=== PATIENT | male | born 1975 | race Caucasian/White ===

== ENCOUNTER 2018-10-28 16:57 | Emergency (ER) | payer BC ==
--- NOTE | 2018-10-28 18:19 | ER Document Report ---
ED Medical Screen (RME) - General Chief Complaint: Leg Swelling Stated Complaint: LEG SWELLING Time Seen by Provider: 10/28/18 18:08 Primary Care Provider: ANT DENIS [Primary Care Provider] - Follow up as needed Notes: Patient is a 43-year-old male presents to the emergency department with redness and swelling noted to his left lower extremity. Patient states a week ago he attempted to jump off of a deck. States he landed on his left knee. Sustained an abrasion. States the redness, swelling, pain has increased which is why he presents to the emergency room. States he did go to work urgent care who told him to come to the emergency room as they were concerned for a blood clot. Patient's pain is not in his calf, is more in his left knee and salazar. Generalized swelling noted entire left lower extremity knee down. Abrasion noted over left knee with surrounding erythema. I have greeted and performed a rapid initial assessment of this patient. A comprehensive ED assessment and evaluation of the patient, analysis of test results and completion of the medical decision making process will be conducted by additional ED providers. This medical record was dictated with voice recognizing software. There may be grammatical, syntax errors that are unintended. TRAVEL OUTSIDE OF THE [place] IN LAST 30 DAYS: No - Related Data Allergies/Adverse Reactions: Penicillins Allergy (Verified 10/28/18 17:10) Past Medical History - Social History Chew tobacco use (# tins/day): No Frequency of alcohol use: None Drug Abuse: None Renal/ Medical History: Denies: Hx Peritoneal Dialysis Physical Exam - Vital signs Vitals: Temp Pulse Resp BP Pulse Ox 98.2 F 106 H 18 160/108 H 97 10/28/18 17:17 10/28/18 17:17 10/28/18 17:17 10/28/18 17:17 10/28/18 17:17 Course - Vital Signs Vital signs: Temp Pulse Resp BP Pulse Ox 98.2 F 106 H 18 160/108 H 97 10/28/18 17:17 10/28/18 17:17 10/28/18 17:17 10/28/18 17:17 10/28/18 17:17 Doctor's Discharge - Discharge Referrals: ANT DENIS [Primary Care Provider] - Follow up as needed
[2018-10-28 18:59] LABS: ABSOLUTE BASOPHILS # (AUTO) 0.1 10^3/uL (0.0-0.2); ABSOLUTE EOSINOPHILS # (AUTO) 0.1 10^3/uL (0.0-0.6); ABSOLUTE LYMPHOCYTES (AUTO) 1.6 10^3/uL (0.5-4.7); ABSOLUTE MONOCYTES (AUTO) 1.1 10^3/uL (0.1-1.4); ABSOLUTE NEUT (AUTO) 4.3 10^3/uL (1.7-8.2); BASOPHILS % (AUTO) 0.8 % (0-2); EOSINOPHILS % (AUTO) 1.3 % (0-6); HEMATOCRIT 41.9 % (37.9-51.0); HEMOGLOBIN 14.5 g/dL (13.5-17.0); LYMPHOCYTES % (AUTO) 22.1 % (13-45); MEAN CORPUSCULAR HEMOGLOBIN 28.8 pg (27.0-33.4); MEAN CORPUSCULAR HGB CONC 34.7 g/dL (32.0-36.0); MEAN CORPUSCULAR VOLUME 83 fl (80-97); MONOCYTES % (AUTO) 15.6 % (3-13); PLATELET COUNT 272 10^3/uL (150-450); RED BLOOD COUNT 5.03 10^6/uL (4.35-5.55); RED CELL DISTRIBUTION WIDTH 13.5 % (11.5-14.0); SEGMENTED NEUTROPHILS % (AUTO) 60.2 % (42-78); TOTAL CELLS COUNTED % (AUTO) 100 %; WHITE BLOOD COUNT 7.2 10^3/uL (4.0-10.5)
--- NOTE | 2018-10-28 19:09 | RADIOLOGY REPORT (SQ) ---
EXAM DESCRIPTION: TIBIA FIBULA LEFT COMPLETED DATE/TIME: 10/28/2018 6:56 pm REASON FOR STUDY: pain/trauma COMPARISON: None. NUMBER OF VIEWS: Two views. TECHNIQUE: Two radiographic images acquired of the left tibia and fibula to include the knee and ank le in at least one projection. LIMITATIONS: None. FINDINGS: MINERALIZATION: Normal. BONES: No acute fracture or dislocation. No worrisome bone lesions. SOFT TISSUES: No obvious swelling or foreign body. OTHER: No other significant finding. IMPRESSION: NEGATIVE STUDY OF THE LEFT TIBIA AND FIBULA. NO RADIOGRAPHIC EVIDENCE OF ACUTE INJURY. TECHNICAL DOCUMENTATION: JOB ID: [id number] [employer]- All Rights Reserved Reading location - IP/workstation name: [email or web address]
--- NOTE | 2018-10-28 19:10 | RADIOLOGY REPORT (SQ) ---
EXAM DESCRIPTION: KNEE LEFT 4 VIEW COMPLETED DATE/TIME: 10/28/2018 6:56 pm REASON FOR STUDY: pain/trauma COMPARISON: None. NUMBER OF VIEWS: Four views. TECHNIQUE: AP, lateral, and both oblique radiographic images acquired of the left knee. LIMITATIONS: None. FINDINGS: MINERALIZATION: Normal. BONES: No acute fracture or dislocation. No worrisome bone lesions. JOINT: No effusion. SOFT TISSUES: No soft tissue swelling. No radio-opaque foreign body. OTHER: No other significant finding. IMPRESSION: NEGATIVE STUDY OF THE LEFT KNEE. NO RADIOGRAPHIC EVIDENCE OF ACUTE INJURY. TECHNICAL DOCUMENTATION: JOB ID: [id number] [employer]- All Rights Reserved Reading location - IP/workstation name: [email or web address]
[2018-10-28 19:21] LABS: ALANINE AMINOTRANSFERASE 29 U/L (21-72); ALBUMIN 4.1 g/dL (3.5-5.0); ALKALINE PHOSPHATASE 100 U/L (38-126); ANION GAP 7 (5-19); ASPARTATE AMINO TRANSFERASE 31 U/L (17-59); BILIRUBIN,DIRECT 0.2 mg/dL (0.0-0.4); BILIRUBIN,TOTAL 0.8 mg/dL (0.2-1.3); BLOOD UREA NITROGEN 14 mg/dL (7-20); CALCIUM 8.6 mg/dL (8.4-10.2); CARBON DIOXIDE 31 mmol/L (22-30); CHLORIDE 103 mmol/L (98-107); GLUCOSE 101 mg/dL (75-110); POTASSIUM 4.1 mmol/L (3.6-5.0); SODIUM 141.1 mmol/L (137-145); TOTAL PROTEIN 7.1 g/dL (6.3-8.2)
[2018-10-28] MEDS ORDERED: OXYCODONE-ACETAMINOPHEN 5-325 MG TABLET PO ONE (20:46)
[2018-10-28] MEDS ORDERED: CEPHALEXIN 500 MG CAPSULE PO ONE (20:47)
[2018-10-28] MEDS ORDERED: ONDANSETRON 4 MG TAB.RAPDIS PO ONE (20:47)
--- NOTE | 2018-10-28 21:00 | ER Document Report ---
ED Extremity Problem, Lower - General Chief Complaint: Leg Swelling Stated Complaint: LEG SWELLING Time Seen by Provider: 10/28/18 18:08 Notes: Patient is a 43-year-old male that comes to the emergency department chief complaint of swelling, pain, bruising, and some developing redness in the left lower extremity. Redness is over the knee. Bruising is mainly over the medial aspect beside the knee and below this. Patient states that he 1 week ago he jumped off a deck, caught his flip-flop, landed on his left knee, had an abrasion at that time. He states instead of resting and elevating it he went right back to work, this has been progressively swelling. Denies fever/chills, nausea/vomiting. He is not a diabetic. Tetanus is up-to-date. He is not on a blood thinner. Only past medical history is hypertension, he states he is out of his lisinopril 10 mg daily and he is hoping for a refill. TRAVEL OUTSIDE OF THE [place] IN LAST 30 DAYS: No - Related Data Allergies/Adverse Reactions: Penicillins Allergy (Verified 10/28/18 17:10) Past Medical History - General Information source: Patient - Social History Smoking Status: Never Smoker Chew tobacco use (# tins/day): No Frequency of alcohol use: None Drug Abuse: None Lives with: Family Family History: Reviewed & Not Pertinent Patient has suicidal ideation: No Patient has homicidal ideation: No - Past Medical History Cardiac Medical History: Reports: Hx Hypertension Renal/ Medical History: Denies: Hx Peritoneal Dialysis - Immunizations Immunizations up to date: Yes Hx Diphtheria, Pertussis, Tetanus Vaccination: Yes Review of Systems - Review of Systems Constitutional: No symptoms reported EENT: No symptoms reported Cardiovascular: No symptoms reported Respiratory: No symptoms reported Gastrointestinal: No symptoms reported Genitourinary: No symptoms reported Male Genitourinary: No symptoms reported Musculoskeletal: See HPI Skin: See HPI Hematologic/Lymphatic: No symptoms reported Neurological/Psychological: No symptoms reported Physical Exam - Vital signs Vitals: Temp Pulse Resp BP Pulse Ox 98.2 F 106 H 18 160/108 H 97 10/28/18 17:17 10/28/18 17:17 10/28/18 17:17 10/28/18 17:17 10/28/18 17:17 - Notes Notes: GENERAL: Alert, interacts well. No acute distress. HEAD: Normocephalic, atraumatic. EYES: Pupils equal, round, and reactive to light. Extraocular movements intact. ENT: Oral mucosa moist, tongue midline. Oropharynx unremarkable. Airway patent. NECK: Full range of motion. Supple. Trachea midline. LUNGS: Clear to auscultation bilaterally, no wheezes, rales, or rhonchi. No respiratory distress. HEART: Regular rate and rhythm. No murmur ABDOMEN: Soft, non-tender. Non-distended. Bowel sounds present in all 4 quadrants. GENITOURINARY: Deferred EXTREMITIES: There is a scab over the left patella area with surrounding erythe ma and warmth suggesting cellular this. However the range of motion of the knee is normal, there is no marked tenderness to the area, there is no swelling to the area. Over the medial aspect of the knee, and then down over the leg there is some bruising suggesting soft tissue injury, there is also some swelling of the lower extremity down to the foot. Normal capillary refill and sensation. No other areas of infection suggested except for over the kneecap. Unremarkable physical examination otherwise of the extremities. BACK: no cervical, thoracic, lumbar midline tenderness. No saddle anesthesia, normal distal neurovascular exam. Moves all extremities in full range of motion. NEUROLOGICAL: Alert and oriented x3. Normal speech. Cranial nerves II through XII grossly intact. PSYCH: Normal affect, normal mood. SKIN: Warm, dry, normal turgor. Course - Re-evaluation Re-evalutation: Physical examination suggest developing cellulitis over the area of the abrasion at the left kneecap. Separate from this there appears to be soft tissue injury, probably ligamentous with no bleeding, bruising, and swelling of the leg. Margy martinez ambulates on the leg without difficulty however, he has normal range of motion of the knee, he has no fever, no leukocytosis. I do not suspect septic arthritis based on his examination. X-ray with no acute findings, Doppler reviewed and initially negative. Discussed with patient. Patient will be treated for cellulitis, discussed recommendations with a soft tissue swelling, discussed follow-up with primary care. He is requesting treatment of his blood pressure, he was provided with this. Discussed return precautions with patient and family at bedside. They state understanding and agreement. - Vital Signs Vital signs: Temp Pulse Resp BP Pulse Ox 98.2 F 92 17 141/91 H 97 10/28/18 22:45 10/28/18 22:45 10/28/18 22:45 10/28/18 22:45 10/28/18 22:45 - Laboratory Result Diagrams: 10/28/18 18:24 10/28/18 18:24 Laboratory results interpreted by me: 10/28/18 10/28/18 18:24 18:24 Monocytes % 15.6 H Carbon Dioxide 31 H Discharge - Discharge Clinical Impression: Left leg swelling, Essential hypertension Cellulitis Qualifiers: Site of cellulitis: extremity Site of cellulitis of extremity: lower extremity Laterality: left Qualified Code(s): L03.116 - Cellulitis of left lower limb Left leg injury Qualifiers: Encounter type: initial encounter Qualified Code(s): S89.92XA - Unspecified injury of left lower leg, initial encounter Condition: Stable Disposition: HOME, SELF-CARE Additional Instructions: The x-rays do not show fracture the ultrasound does not show a clot. Your examination is consistent with soft tissue injury, probably a ligament injury, and hematoma (collection of blood under the skin). There is also an area of infection (cellulitis) over the kneecap area. Take the antibiotic Keflex as prescribed, elevate your leg, you can take [id number] anti-inflammatories or Tylenol for pain, take the provided pain medication only if needed for more severe pain. Symptoms should gradually resolve. Follow-up with primary care. Return if you worsen including increased swelling, developing or spreading redness, fever, severe worsening pain, or any other concerning or worsening symptoms. Prescriptions: Cephalexin Monohydrate [Keflex 500 mg Capsule] 500 mg PO QID #28 capsule Hydrocodone/Acetaminophen [[place] 5-325 mg Tablet] 1 - 2 tab PO ASDIR #10 tablet Lisinopril [Prinivil 10 mg Tablet] 10 mg PO DAILY #30 tablet Forms: Return to Work
[2018-10-28 22:45] VITALS: BP 141/91
--- NOTE | 2018-10-29 11:41 | XCELERA REPORT ---
[address] [place] [facility] [address] Lower Extremity Venous Evaluation Procedure: Color flow and duplex imaging of the veins of the left lower extremity as well as the right Common Femoral vein. Right Sided Venous Evaluation The right common femoral vein is fully compressible. Spontaneous and phasic flow is present in the right common femoral vein. Left Sided Venous Evaluation Normal vessel filling wall to wall, compression and augmentation as well as Colour flow down to the infrageniculate veins. Interpretation Summary No duplex evidence of DVT or obstruction in the left lower extremity nor in the right Common Femoral vein. Name: MEREDITH ALEXANDER Age: 43 yrs Gender: Male : 1975 Patient Status: Emergency Patient Location: ER Study Date: 10/28/2018 09:14 PM Reason For Study: left Ordering Physician: JACQUELINE ROMO Performed By: Dalia Montoya : JACQUELINE ROMO > Rony Delcid
== END 2018-10-28 22:45 | disposition home or self-care (01) ==
LOC: ER 16:57
DX: L03.116 Cellulitis of left lower limb (principal); S80.212A Abrasion, left knee, initial encounter; S89.92XA Unspecified injury of left lower leg, initial encounter; I10 Essential (primary) hypertension; Z88.0 Allergy status to penicillin
CPT/HCPCS: 99284; 36415; 87040; 83605; 85025; 80053; 93971 ×2; 73564; 73590; S0119

== ENCOUNTER 2020-05-20 22:13 | Emergency (ER) | payer BC ==
[2020-05-20] MEDS ORDERED: ACETAMINOPHEN 325 MG TABLET PO ONE (22:51)
--- NOTE | 2020-05-20 23:56 | RADIOLOGY REPORT (SQ) ---
Chest and bilateral rib x-ray three views on 05/20/2020 at 11:10 PM CLINICAL INDICATION: Injury, pain COMPARISON: None FINDINGS: The lungs are clear. There is no pneumothorax or pleural effusion. Cardiac, hilar and mediastinal contours are within normal limits. Pulmonary vascularity is within normal limits. There are old healed left posterior sixth and seventh rib fractures. No acute rib fracture is noted bilaterally. IMPRESSION: No active disease and no acute rib fracture.
--- NOTE | 2020-05-20 23:57 | RADIOLOGY REPORT (SQ) ---
EXAM DESCRIPTION: XR LUMBAR SPINE ANTEROPOSTERIOR, LATERAL, AND OBLIQUES COMPLETED DATE/TME: 05/20/2020 23:10 CLINICAL HISTORY: 45 years Male, injury COMPARISON: None. Findings: Mild levo convexity. Mild disc desiccation between the L3 and S1 levels. Lumbar spondylosis. Normal alignment and normal lordotic curvature. Vertebral heights are maintained. Visualized extraspinal structures are otherwise unremarkable. IMPRESSION: No acute findings of XR LUMBAR SPINE ANTEROPOSTERIOR, LATERAL, AND OBLIQUES. Mild degenerative disc disease and spondylosis of the lower lumbar spine. .
--- NOTE | 2020-05-21 00:25 | ER Document Report ---
ED Medical Screen (RME) - General Chief Complaint: Fall Stated Complaint: RIB PAIN Time Seen by Provider: 05/20/20 22:46 Primary Care Provider: PABLO ROUSSEAU PA-C [Primary Care Provider] - Follow up as needed Mode of Arrival: Ambulatory Notes: HPI; 45-year-old male presents emergency room complaining of low back pain, and rib pain. Patient states he was up on a ladder attempting to fix antenna when the ladder twisted causing him to fall and landing on his back. States he was approximately 5 to 6 feet in the air when he fell. States he hit his head but he did not pass out. Denies any nausea, vomiting, no loss of consciousness. States he has pain in both his ribs and his low back. Did not take any medications for symptoms. Drove self to the ER. PE: Alert and oriented x3. Lungs: Clear to auscultation without rales, rhonchi, wheezes. Heart: Regular rate rhythm without murmurs, rubs, gallops. Ribs are tender bilaterally posteriorly lower region. No obvious deformity palpated. Cervical spine is nontender to palpation. Thoracic spine is nontender to palpation. There is tenderness on the lumbar spine from L2-S1. No step-offs or obvious deformities palpated. Patient is ambulatory with slight limping noted bilaterally. I have greeted and performed a rapid initial assessment of this patient. A comprehensive ED assessment and evaluation of the patient, analysis of test results and completion of the medical decision making process will be conducted by additional ED providers. I have specifically instructed the patient or family members with the patient to immediately return to any nursing staff should anything change in the patient's condition or with their chief complaint. TRAVEL OUTSIDE OF THE [place] IN LAST 30 DAYS: No - Related Data Allergies/Adverse Reactions: Penicillins Allergy (Verified 10/28/18 17:10) Past Medical History - Past Medical History Cardiac Medical History: Reports: Hx Hypertension Renal/ Medical History: Denies: Hx Peritoneal Dialysis - Immunizations Immunizations up to date: Yes Hx Diphtheria, Pertussis, Tetanus Vaccination: Yes Physical Exam - Vital signs Vitals: Temp Pulse Resp BP Pulse Ox 98.3 F 83 18 159/105 H 95 05/20/20 22:16 05/20/20 22:16 05/20/20 22:16 05/20/20 22:16 05/20/20 22:16 Course - Vital Signs Vital signs: Temp Pulse Resp BP Pulse Ox 98.3 F 83 18 159/105 H 95 05/20/20 22:16 05/20/20 22:16 05/20/20 22:16 05/20/20 22:16 05/20/20 22:16 Doctor's Discharge - Discharge Referrals: PABLO ROUSSEAU PA-C [Primary Care Provider] - Follow up as needed
[2020-05-21] MEDS ORDERED: HYDROCODONE/ACETAMINOPHEN 5-325 MG TABLET PO ONE (07:05)
--- NOTE | 2020-05-21 07:11 | ER Document Report ---
ED General - General Chief Complaint: Fall Stated Complaint: RIB PAIN Time Seen by Provider: 05/20/20 22:46 Primary Care Provider: PABLO ROUSSEAU PA-C [Primary Care Provider] - Follow up as needed Mode of Arrival: Ambulatory Information source: Patient Notes: Patient presents to the ER for evaluation of low back pain and right sided rib pain following a fall approximately 3 to 4 feet from a ladder. The patient states the injury occurred approximately 6:00 PM on the . He denies headache or neck pain. He denies positive loss of consciousness. He is ambul atory with out assistance. He denies shortness of breath. He denies loss of bowel or bladder. Nursing notes reviewed and past medical, social, and family histories reviewed and validated. TRAVEL OUTSIDE OF THE [place] IN LAST 30 DAYS: No - Related Data Allergies/Adverse Reactions: Penicillins Allergy (Verified 10/28/18 17:10) Past Medical History - General Information source: Patient - Social History Smoking Status: Current Some Day Smoker Cigarette use (# per day): Yes - Half pack per day Chew tobacco use (# tins/day): No Smoking Education Provided: Yes Frequency of alcohol use: None Drug Abuse: None Lives with: Family Family History: Reviewed & Not Pertinent Patient has suicidal ideation: No Patient has homicidal ideation: No - Past Medical History Cardiac Medical History: Reports: Hx Hypertension Pulmonary Medical History: Reports: None EENT Medical History: Reports: None Neurological Medical History: Reports: None Endocrine Medical History: Reports: None Renal/ Medical History: Reports: None. Denies: Hx Peritoneal Dialysis Malignancy Medical History: Reports None GI Medical History: Reports: None Musculoskeletal Medical History: Reports None Skin Medical History: Reports None Psychiatric Medical History: Reports: None Traumatic Medical History: Reports: None Infectious Medical History: Reports: None Past Surgical History: Reports: None - Immunizations Immunizations up to date: Yes Hx Diphtheria, Pertussis, Tetanus Vaccination: Yes Review of Systems - Review of Systems Notes: Constitutional: Negative for fever. HENT: Negative for sore throat. Eyes: Negative for visual changes. Cardiovascular: Negative for chest pain. Respiratory: Negative for shortness of breath. Gastrointestinal: Negative for abdominal pain, vomiting or diarrhea. Genitourinary: Negative for dysuria. Musculoskeletal: Right chest wall pain. Low back pain. Skin: Negative for rash. Neurological: Negative for headaches, weakness or numbness. 10 point ROS negative except as marked above and in HPI. Physical Exam - Vital signs Vitals: Temp Pulse Resp BP Pulse Ox 98.3 F 83 18 159/105 H 95 05/20/20 22:16 05/20/20 22:16 05/20/20 22:16 05/20/20 22:16 05/20/20 22:16 - Notes Notes: CONSTITUTIONAL: Well appearing in no acute distress SKIN: Warm, dry, and intact without rash EYES: Extraocular movements are grossly intact, clear conjunctiva HENT: Normocephalic, atraumatic, moist mucus membranes NECK: No obvious swelling, normal range of motion PULMONARY: Normal chest rise and fall, no respiratory distress or stridor CARDIOVASCULAR: Regular rate, distal extremities are warm and well perfused NEUROLOGIC: Normal speech, moves all extremities MUSCULOSKELETAL: There is mild tenderness palpation over the lateral aspect of the right lower ribs. There is also tenderness palpation over the bilateral paravertebral lumbar muscles of the low back. No spinal tenderness noted. There is no weakness in the lower extremities. PSYCHIATRIC: Normal mood and affect Course - Re-evaluation Re-evalutation: 05/21/20 07:17 Rechecked patient who has responded well to treatment in the ER. Discussed with patient: results, diagnosis, treatment plan, and need for follow-up. Return to the emergency department warnings were given. All questions and concerns were addressed. The plan is agreed with and understood. Patient is stable and ready for discharge. - Vital Signs Vital signs: Temp Pulse Resp BP Pulse Ox 98.1 F 87 18 130/95 H 97 05/21/20 01:33 05/21/20 01:33 05/20/20 22:16 05/21/20 01:33 05/21/20 01:33 - Laboratory Results Critical Laboratory Results Reviewed: No Critical Results - Radiology Results Critical Radiology Results Reviewed: No Critical Results Discharge - Discharge Clinical Impression: Low back pain Qualifiers: Chronicity: acute Back pain laterality: bilateral Sciatica presence: without sciatica Qualified Code(s): M54.5 - Low back pain Chest wall contusion Qualifiers: Encounter type: initial encounter Laterality: right Qualified Code(s): S20.211A - Contusion of right front wall of thorax, initial encounter Condition: Stable Disposition: HOME, SELF-CARE Instructions: Low Back Pain ([facility]) Prescriptions: Hydrocodone/Acetaminophen [[place] 5-325 mg Tablet] 1 tab PO Q6HP PRN 3 Days #12 tablet PRN Reason: For Pain Ibuprofen [Motrin 800 mg Tablet] 800 mg PO Q8HP PRN #20 tab PRN Reason: For Pain Forms: Return to Work Referrals: PABLO ROUSSEAU PA-C [Primary Care Provider] - Follow up as needed
[2020-05-21 07:28] VITALS: BP 156/107
== END 2020-05-21 07:28 | disposition home or self-care (01) ==
LOC: ER 22:13
DX: S20.211A Contusion of right front wall of thorax, initial encounter (principal); M54.5 Low back pain; R07.81 Pleurodynia; W11.XXXA Fall on and from ladder, initial encounter; F17.210 Nicotine dependence, cigarettes, uncomplicated; I10 Essential (primary) hypertension; Z88.0 Allergy status to penicillin
CPT/HCPCS: 71111; 72110; 99284